=== PATIENT | male | born 1940 | race Caucasian/White ===

== ENCOUNTER → 2017-06-19 | Outpatient (CLI) | payer OTHER, BC ==
[~2017-06-19] MED LIST: ACC10; ALL300; ALPR-411; DIGO0.122 PO; DILT240C75; DSY50; FURO-85 PO; MAGN400T6 PO; MULT-506; OMEG10007 PO; PARO1TAB27 PO; POTA10CA28 PO; PRLSR20; TRAM-10 PO; WARF5TAB90 PO; bistolic; crestor
== END | disposition home or self-care (01) ==
LOC: C.PATHSPEC 17:23
PROVIDERS: ATTEND Urology
DX: C61 Malignant neoplasm of prostate (principal); N42.32 Atypical small acinar proliferation of prostate

== ENCOUNTER → 2017-07-03 | Outpatient (CLI) | payer OTHER, BC | END | disposition home or self-care (01) | LOC: C.LABSPEC 16:59 | PROVIDERS: ATTEND Urology | DX: C61 Malignant neoplasm of prostate (principal) ==

== ENCOUNTER → 2017-07-15 | Outpatient (CLI) | payer OTHER, BC ==
--- NOTE | 2017-07-15 16:03 | DIAGNOSTIC IMAGING REPORT ---
WHOLE-BODY NUCLEAR BONE SCAN CLINICAL HISTORY: Prostate cancer. COMPARISON STUDY: Chest x-ray dated 10/27/2005. TECHNIQUE: Three hours following the IV administration of 27 mCi of technetium 99m MDP, whole body nuclear bone scan was performed in the anterior and posterior projections. 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 Typically degenerative uptake is identified in the shoulders, hips, right knee, and the right ankle. Degenerative activity and scoliosis are noted in the thoracic spine. A photopenic defect is consistent with a left knee arthroplasty. There is expected excreted activity within the renal collecting system and bladder. IMPRESSION: There is no abnormal tracer deposition identified typical appearance for bony metastatic disease. Electronically signed by: Delroy Avila M.D. 07/15/2017 4:01 PM Dictated Date/Time: 07/15/2017 4:00 PM
== END | disposition home or self-care (01) ==
LOC: C.NUCL 12:15
PROVIDERS: ATTEND Urology
DX: C61 Malignant neoplasm of prostate (principal)